=== PATIENT | male | born 1960 | race Caucasian/White ===

== ENCOUNTER 2020-06-10 21:18 | Inpatient (IN) | payer OTHER, MEDICARE ==
[~2020-06-10] VITALS: Ht 182.9 cm; Wt 131.5 kg
[2020-06-10 21:19] VITALS: BP 166/84
[2020-06-10 22:14] LABS: ABSOLUTE LYMPHOCYTES 0.7 thou/uL (0.8-5.3); ABSOLUTE MONOCYTES 0.5 thou/uL (0.0-1.2); ABSOLUTE NEUTROPHILS 3.7 thou/uL (1.6-8.1); BASOPHILS 0.2 %; EOSINOPHILS 0.4 %; HEMATOCRIT 45.6 % (42.0-52.0); HEMOGLOBIN 15.4 gm/dL (14.0-18.0); LYMPHOCYTES 13.8 %; MCH 31.1 pg (26.0-34.0); MCHC 33.8 g/dL (28.0-37.0); MCV 92.1 fL (80.0-100.0); MONOCYTES 10.8 %; MPV 9.2 fl. (7.2-11.1); NUCLEATED RBCS 0 /100WBC; PLATELET COUNT* 130 thou/uL (150-400); POLYS 74.8 %; RBC 4.95 mil/uL (4.50-6.00); RDW-CV 13.8 % (10.5-14.5); WBC 4.9 thou/uL (4.0-11.0)
[2020-06-10 22:15] LABS: PCO2 38.5 mmHg (35.0-45.0); PO2 69.4 mmHg (75.0-100.0); pH 7.403 (7.340-7.450)
[2020-06-10 22:20] LABS: CALCIUM 7.5 mg/dL (8.5-10.1); CREATININE 1.1 mg/dL (0.6-1.3); POTASSIUM 3.6 mmol/L (3.5-5.1)
[2020-06-10 22:22] LABS: PROTIME 10.6 Seconds (9.20-11.50)
[2020-06-10 22:24] LABS: ALBUMIN 2.9 g/dL (3.4-5.0); MAGNESIUM 1.7 mg/dL (1.8-2.4); TOTAL BILIRUBIN 0.7 mg/dL (<0.1-1.0); TOTAL PROTEIN 6.5 g/dL (6.4-8.2)
[2020-06-11] VITALS (7 sets, daily range): BP systolic 148–190; BP diastolic 75–92
[2020-06-11 00:30] LABS: URINE BILIRUBIN NEGATIVE (Negative); URINE BLOOD NEGATIVE (Negative); URINE CLARITY CLEAR; URINE COLOR YELLOW; URINE GLUCOSE-RANDOM 2+ (Negative); URINE KETONES 1+ (Negative); URINE LEUKOCYTES-REFLEX NEGATIVE (Negative); URINE NITRITE-REFLEX NEGATIVE (Negative); URINE PROTEIN NEGATIVE (Negative); URINE SPECIFIC GRAVITY 1.025 (1.005-1.030); URINE UROBILINOGEN 0.2 E.U./dl (0.2-1.0)
[2020-06-11 09:55] LABS: CALCIUM 7.9 mg/dL (8.5-10.1); CREATININE 0.9 mg/dL (0.6-1.3); POTASSIUM 4.1 mmol/L (3.5-5.1)
[2020-06-11 09:58] LABS: MAGNESIUM 1.8 mg/dL (1.8-2.4); PHOSPHORUS* 2.4 mg/dL (2.5-4.9)
[2020-06-11] MEDS ORDERED: PREVACID30 MG PO (14:04)
[2020-06-11] MEDS ORDERED: LYRICA100 MG PO (14:05)
--- NOTE | 2020-06-11 14:07 | EKG ---
[place] [address] ELECTROCARDIOGRAM REPORT Name: MISSY MORRIS Room: [place] [address] ADM IN ..#: [id number] Admission: 06/10/20 Attend Phys: Abhishek Kirk, Discharge: Date of : 64 Date of Service: 06/10/202118 Report #: [id number] THIS REPORT FOR: //name// [facility] ED Test Date: 2020-06-10 Test Time: 21:19:37 Pat Name: MISSY MORRIS Department: Room: [facility] Gender: M Logistics Clerk: MS : 1960 Requested By: Agnes Aguilar Order Number: [id number] MD: Adriano Enriquez Measurements Intervals [place] Rate: 82 P: 47 SC: 163 QRS: -31 QRSD: 99 T: 50 QT: 416 QTc: 486 Interpretive Statements Sinus rhythm Left axis deviation Baseline wander in lead(s) I,II,aVR No previous ECG available for comparison Electronically Signed On 06-11-2020 14:06:51 M1A1 [employer] by Adriano Enriquez [email or web address] <ELECTRONICALLY SIGNED> By: Adriano Enriquez MD, FACC 06/11/20 1406 18 18 Adriano Enriquez MD, FAC /EPI
[2020-06-11] MEDS ORDERED: LOPRESSOR50 MG PO (16:24)
[2020-06-11] MEDS ORDERED: LEXAPRO20 MG PO (16:24)
[2020-06-11] MEDS ORDERED: LIPITOR 20 MG T20 M1 PO (16:24)
[2020-06-11] MEDS ORDERED: ZESTRIL20 MG PO (16:25)
[2020-06-11] MEDS ORDERED: JARDIANCE25 MG PO (16:25)
[2020-06-11] MEDS ORDERED: BRINTELLIX10 MG PO (16:25)
[2020-06-11] MEDS ORDERED: TRESIBA100 UNIT/1 SUBQ (16:26)
[2020-06-11] MEDS ORDERED: TRULICITY3 MG/0.5 M SUBQ (16:26)
[2020-06-11] MEDS ORDERED: HUMALOG100 UNIT/1 SUBQ (16:26)
--- NOTE | 2020-06-11 20:00 | NUR ---
RECEIVED REPORT FROM ER, PT TO ROOM PER BED. ASSESSMENT COMPLETED. NO SOA NOTED, O2 ON AT 2L/NC. AMBULATING AROUND ROOM WITH STEADY GAIT. TELEMETRY ON SHOWING SR. WILL CONT TO MONITOR AND ASSIST NEEDED.
[2020-06-12 00:42] VITALS: BP 162/92
[2020-06-12 04:59] VITALS: BP 146/81
[2020-06-12 06:41] LABS: ABSOLUTE LYMPHOCYTES 0.7 thou/uL (0.8-5.3); ABSOLUTE MONOCYTES 0.5 thou/uL (0.0-1.2); ABSOLUTE NEUTROPHILS 2.6 thou/uL (1.6-8.1); HEMATOCRIT 45.4 % (42.0-52.0); HEMOGLOBIN 15.5 gm/dL (14.0-18.0); MCH 31.3 pg (26.0-34.0); MCV 91.8 fL (80.0-100.0); MPV 9.1 fl. (7.2-11.1); NUCLEATED RBCS 0 /100WBC; PLATELET COUNT* 173 thou/uL (150-400); RBC 4.95 mil/uL (4.50-6.00); RDW-CV 13.9 % (10.5-14.5); WBC 3.9 thou/uL (4.0-11.0)
[2020-06-12 07:05] LABS: ALBUMIN 2.9 g/dL (3.4-5.0); CREATININE 0.9 mg/dL (0.6-1.3); MAGNESIUM 2.1 mg/dL (1.8-2.4); POTASSIUM 4.1 mmol/L (3.5-5.1); TOTAL BILIRUBIN 0.4 mg/dL (<0.1-1.0); TOTAL PROTEIN 6.8 g/dL (6.4-8.2)
--- NOTE | 2020-06-12 07:16 | NUR ---
AWAKE MOST OF NIGHT. BIPAP ON APPROX 1 HR BUT COULD NOT TOLERATE. RETURNED TO NC AT 2L. NO CHANGE IN ASSESSEMENT. TELEMETRY SHOWING SR. HS GOALS OF REST AND SAFETY ACHIEVED. HOURLY ROUNDING OBSERVED. REMAINS IN ISOLATION FOR COVID.
[2020-06-12 08:37] VITALS: BP 150/87
[2020-06-12 11:40] VITALS: BP 129/79
--- NOTE | 2020-06-12 15:00 | NUR ---
SPOKE WITH PT.BY PHONE DUE TO BEING COVID POSITIVE AND IN ENHANCED ISOLATION PRECAUTIONS. HE SAID HE LIVES WITH HIS . HE IS NORMALLY INDEPENDNET. WORKS DURING THE DAY. FEELING SOME BETTER. NO USE OF DMR OR O2. NO HX OF HH OR SNF. PLANS TO RETURN HOME AT DISCHARGE.
[2020-06-12 16:49] VITALS: BP 129/75
--- NOTE | 2020-06-12 17:22 | NUR ---
PT REMIANED ALERT AND ORIENTED. PT RESTING IN BED. PT DNEIES ANY NEEDS. FALL RISK PRECAUTIONS IN PLACE. HOURLY ROUNDING COMPLETED. HERAT MONITORED. WILL CONTINUE TO MONITOR,
--- NOTE | 2020-06-12 20:00 | NUR ---
RECEIVED REPORT AND ASSUMED CARE OF PT, ASSESSMENT COMPLETED. PT AMBULATING AROUND ROOM WITH STEADY GAIT. STATES OCC NON-PROD COUGH. CONT TO HAVE HEAD AND NECK PAIN. TELEMETRY ON SHOWING SR. WILL CONT TO MONITOR AND ASSIST NEEDED.
[2020-06-12 20:30] VITALS: BP 150/81
[2020-06-13 01:02] VITALS: BP 129/73
[2020-06-13 05:00] VITALS: BP 144/79
--- NOTE | 2020-06-13 06:00 | NUR ---
SLEPT WELL TONIGHT. NO CHANGE IN ASSESSMENT. HAVING OCC MOIST NON-PROD COUGH. TELEMETRY CONT TO SHOW SR. HS GOALS OF REST AND SAFETY ACHIEVED. HOURLY ROUNDING OBSERVED.
[2020-06-13 06:35] LABS: ABSOLUTE LYMPHOCYTES 0.9 thou/uL (0.8-5.3); BASOPHILS 0.1 %; RDW-CV 13.9 % (10.5-14.5)
[2020-06-13 06:37] LABS: ABSOLUTE MONOCYTES 0.8 thou/uL (0.0-1.2); ABSOLUTE NEUTROPHILS 5.7 thou/uL (1.6-8.1); HEMOGLOBIN 14.9 gm/dL (14.0-18.0); LYMPHOCYTES 12.6 %; MCH 31.1 pg (26.0-34.0); MCHC 33.8 g/dL (28.0-37.0); MCV 92.1 fL (80.0-100.0); MONOCYTES 11.2 %; MPV 8.9 fl. (7.2-11.1); NUCLEATED RBCS 0 /100WBC; PLATELET COUNT* 186 thou/uL (150-400); POLYS 76.1 %; RBC 4.78 mil/uL (4.50-6.00); WBC 7.5 thou/uL (4.0-11.0)
[2020-06-13 06:53] LABS: ALBUMIN 2.8 g/dL (3.4-5.0); CALCIUM 8.1 mg/dL (8.5-10.1); MAGNESIUM 2.2 mg/dL (1.8-2.4); POTASSIUM 3.8 mmol/L (3.5-5.1); TOTAL BILIRUBIN 0.4 mg/dL (<0.1-1.0); TOTAL PROTEIN 6.4 g/dL (6.4-8.2)
[2020-06-13] MEDS ORDERED: PREDNISONE 10 M10 MG PO (09:53)
[2020-06-13] MEDS ORDERED: FLEXERIL PO (09:53)
[2020-06-13] MEDS ORDERED: CEFDINIR300 MG PO (11:26)
[2020-06-13 12:56] VITALS: BP 144/79
[2020-06-13 12:57] VITALS: BP 153/83
--- NOTE | 2020-06-13 13:42 | NUR ---
PT IS RESTING AT THIS TIME. VSS ON RA. SR ON MONITOR. PT OK TO DC HOME. DC INSTRUCTIONS,PRESCRIPTIONS, FOLLOW UP CARE,ACTIVITY AND ISOLATIONS REVIEWED WITH PT AND PT REPORTS UNDERSTANDING WITHOUT FURTHER QUESTIONS. PT DOES REQUIRE TRANSPORTATION. CASE MANAGMENT CALLED AND WILL BEGIN PROCESS OF ACQUIRING A TAXI. TM
--- NOTE | 2020-06-13 14:17 | NUR ---
PT.TOLD RN, HIS IS SICK AND CANNOT PICK HIM UP FROM HOSPITAL. HE WILL NEED A RIDE HOME. NO OTHER FAMILY CAN [facility]. HE CANNOT AFFORD [employer] OR [employer]. TAXI FOR POSITIVE COVID PT PER Z TRIP IS OVER $200. [place] VAN ARRANGED WITH [employer] [facility] [phone]. HOSPITAL TO PAY COST. THEY WILL [facility] BETWEEN 4:30-5:00. HERACLIO HONG INFORMED.
--- NOTE | 2020-06-15 08:44 | CON ---
[address] [address] CONSULTATION Name: MISSY MORRIS Room: [address] IN M.R.#: [id number] Admission: 06/10/20 Attend Phys: Abhishek Kirk MD Discharge: 06/13/20 Date of : 64 Report #: [id number] THIS REPORT FOR: //name// cc: NAYLA - No family physician/PCP FAM - No family physician/PCP ~ DATE OF SERVICE: 06/11/2020 CONSULTATION REQUESTED BY: Roverto Cochran DO. INDICATION FOR CONSULTATION: COVID 19. HISTORY OF PRESENT ILLNESS: A 59-year-old gentleman. He does have an extensive history of smoking and he still smokes. He also does have a body mass index elevated to 39.3 and I suspect that he has previously undiagnosed COPD as well as obstructive sleep apnea. Neither is previously diagnosed. The patient at this time is noted to have been tested positive for COVID-19 about a week ago. He now developed a severe headache, had altered mental status and had acute shortness of breath, which is the reason that he was brought to the Emergency Room. The patient did have a CT head performed, which is consistent with sinusitis; however, did not show any intracranial abnormalities. He is alert, awake and oriented now. He answers to the negative for 12 questions for review of systems except as mentioned above. PAST MEDICAL HISTORY: Hypertension, diabetes, obesity, body mass index 39. SOCIAL HISTORY: He has a history of smoking more than 2 packs a packs a day more than 40 years, still smokes. Occasional alcohol intake. No known history of illegal drug use. ALLERGIES: No known drug allergies. FAMILY HISTORY: No pertinent family history. PHYSICAL EXAMINATION: GENERAL: Alert, awake and oriented, does not appear to be in any distress, but at the time of my evaluation, he was saturating only 90% on 2 liters oxygen, earlier he was saturating 91% on room air. VITAL SIGNS: Pulse 78 and a blood pressure of 163/85, afebrile with a temperature of 36.9. HEENT: Head is normocephalic and atraumatic. NECK: Does not show raised JVP, asymmetry, mass or lymph nodes. CHEST: Symmetrical expansion on inspection and palpation. On auscultation, breath sounds are mildly decreased bilaterally. No added sounds. HEART: Regular, no murmur. ABDOMEN: [place] [address] CONSULTATION Name: MISSY MORRIS Room: [address] IN [facility]#: [id number] Admission: 06/10/20 Attend Phys: Abhishek Kirk MD Discharge: 06/13/20 Date of : 64 Report #: [id number] EXTREMITIES: Lower extremities do show 1+ edema. There are significant chronic venous changes noted consistent with chronic venous insufficiency. There is no calf tenderness. SKIN: Dry and intact. NEUROLOGICAL: Moves all extremities bilaterally equally and spontaneously with no focal deficit identified. LABORATORY DATA: The patient's chest x-ray is reviewed and does show increase in interstitial markings, which likely are secondary to atypical infiltrates secondary to COVID-19. Mild increase in pulmonary vascular congestion would look identical on the x-rays. CT head as above. ASSESSMENT AND PLAN: 1. Acute respiratory insufficiency secondary to COVID-19. Continue to titrate oxygen. Considering that it appears likely to me that the patient has underlying chronic obstructive pulmonary disease as well as obstructive sleep apnea, I went ahead and ordered BiPAP while asleep. I also went ahead and ordered nebulized bronchodilators. 2. COVID-19. I agree with dexamethasone in the current dose. I will go ahead and start him on remdesivir as well. Held off on convalescent plasma for now, we will consider if he worsens. Following LFTs while on remdesivir. 3. Edema/fluid overload. To me, he appears to be fluid overloaded. Discontinue IV fluids. I ordered a dose of Lasix for tomorrow morning. We will replace his magnesium and potassium as indicated. 4. Edema, lower extremities/chronic venous insufficiency. I ordered a D-dimer for tomorrow morning labs. If this is elevated, then I would evaluate for thromboembolism. Meanwhile, he is on Lovenox for deep venous thrombosis prophylaxis. 5. Obesity/suspected obstructive sleep apnea. 6. History of smoking/suspected chronic obstructive pulmonary disease. 7. Severe headache. The Neurology service is also on the case. 8. Sinusitis/pulmonary infiltrates. He is on ceftriaxone. I went ahead and added azithromycin. Sinusitis can cause headaches; however, this is an insufficient explanation. Possibly headache is an atypical presentation of COVID-19. 9. History of diabetes. 10. History of hypertension. Thanks for this consultation. <ELECTRONICALLY SIGNED> By: Brandon Yung MD 06/15/2044 50 Acarlos alberto Yung MD /nt
== END 2020-06-13 16:45 | disposition home or self-care (01) | DRG 177 ==
LOC: M.ERS 21:18 → M.ORTHSURG 23:43 → M.TBA-ER 23:43 → M.ORTHSURG 06-11 20:35
PROVIDERS: Internal Medicine; Internal Medicine Critical Care Medicine; Personal Emergency Response Attendant; ADMIT Internal Medicine; ATTEND Internal Medicine
PROC: XW033E5 Introduction of Remdesivir Anti-infective into Peripheral Vein, Percutaneous Approach, New Technology Group 5 (ICD-10-PCS; principal; 2020-06-11)
PROC: 5A09357 Assistance with Respiratory Ventilation, Less than 24 Consecutive Hours, Continuous Positive Airway Pressure (ICD-10-PCS; 2020-06-12)
DX: U07.1 COVID-19 (principal); J12.89 Other viral pneumonia; J96.01 Acute respiratory failure with hypoxia; G93.41 Metabolic encephalopathy; E46 Unspecified protein-calorie malnutrition; E83.42 Hypomagnesemia; E11.9 Type 2 diabetes mellitus without complications; I10 Essential (primary) hypertension; F17.210 Nicotine dependence, cigarettes, uncomplicated; E87.70 Fluid overload, unspecified; I87.2 Venous insufficiency (chronic) (peripheral); G47.33 Obstructive sleep apnea (adult) (pediatric); E66.9 Obesity, unspecified; Z72.89 Other problems related to lifestyle; Z68.39 Body mass index [BMI] 39.0-39.9, adult